=== PATIENT | female | born 1980 | race Hispanic/Latino ===

== ENCOUNTER 2021-06-24 16:11 | Outpatient (CLI) | payer BC | END 2021-06-24 16:12 | disposition home or self-care (01) | LOC: CSHMRI 16:11 | PROVIDERS: ATTEND Family Medicine | DX: M54.50 Low back pain, unspecified (principal); M47.816 Spondylosis without myelopathy or radiculopathy, lumbar region; M48.061 Spinal stenosis, lumbar region without neurogenic claudication; Q76.49 Other congenital malformations of spine, not associated with scoliosis; M89.9 Disorder of bone, unspecified | CPT/HCPCS: 72148 ==

== ENCOUNTER 2022-09-13 13:48 | Outpatient (CLI) | payer BC | END 2022-09-13 13:49 | disposition home or self-care (01) | LOC: CSHRAD 13:48 | PROVIDERS: ATTEND Family Medicine | DX: M25.561 Pain in right knee (principal) ==